=== PATIENT | male | born 1955 | race Caucasian/White ===

== ENCOUNTER 2017-06-20 08:38 | Emergency (ER) | payer SELFPAY ==
[2017-06-20 08:43] VITALS: BP 140/84; PULSE 90; RESP 20; TEMP 97.3; O2SAT 97
--- NOTE | 2017-06-20 08:45 | PD ---
HPI . right arm redness and wounds x 1 mt Chief Complaint: Skin Problem Time Seen by Provider: 08:45 Travel History International Travel<30 days: No Contact w/Intl Traveler<30days: No Traveled to known affect area: No History of Present Illness HPI 61 yr old male with history of psoriasis and is homeless here with complaints of right arm redness and wounds for over a month. Patient says he's been trying to take care of him, but they seem to be progressively getting worse. He denies any fever or chills. He has no other complaints. He is currently living in his car and does not have access to resources daily. PFSH Past Medical History Depression: Yes Musculoskeletal: Yes (R BICEP SURGERY) Past Surgical History Neurologic Surgery: No Other Surgery: Yes Social History Alcohol Use: Yes (12 PK WEEK) Tobacco Use: Yes (PK A DAY) Substance Use: No Allergies-Medications (Allergen,Severity, Reaction): Coded Allergies: No Known Allergies (Verified , 10/06/13) Reported Meds & Prescriptions Reported Meds & Active Scripts Active Bactrim DS (Sulfamethoxazole-Trimethoprim) 800-160 Mg Tab 1 Tab PO BID Review of Systems General / Constitutional: No: Fever Eyes: No: Visual changes HENT: No: Headaches Cardiovascular: No: Chest Pain or Discomfort Respiratory: No: Shortness of Breath Gastrointestinal: No: Abdominal Pain Genitourinary: No: Dysuria Musculoskeletal: No: Pain Skin: Positive Lesions, Positive Other (right arm skin wound), No Rash Neurologic: No: Weakness Psychiatric: No: Depression Endocrine: No: Polydipsia Hematologic/Lymphatic: No: Easy Bruising Physical Exam Narrative GENERAL: AAO x 3, no acute distress, Well-nourished, well-developed patient. SKIN: Warm and dry. No visible rashes or bruising. 7 cm skin wound that is healing on the elbow, mild surrounding erythema without purulence, left arm two small lesions that are erythematous, multiple scattered psoriatic appearing lesions dispersed over b/l UE HEAD: Normocephalic and atraumatic. EYES: No scleral icterus. No injection or drainage. EOM intact, PERRLA ENT: No nasal drainage noted. Mucous membranes pink. Airway patent. NECK: Supple, trachea midline. No JVD. CARDIOVASCULAR: Regular rate and rhythm without murmurs, gallops, or rubs. RESPIRATORY: Breath sounds equal bilaterally. No accessory muscle use. No rhonchi or rales. GASTROINTESTINAL: visual inspection normal EXTREMITIES: No cyanosis or edema. BACK: No obvious deformity. NEURO: CN II-12 intact, PSYCH: AAO x 3, normal affect. Data Data Last Documented VS Vital Signs Date Time Temp Pulse Resp B/P Pulse Ox O2 Delivery O2 Flow Rate FiO2 06/20/17 08:43 97.3 90 20 140/84 97 Room Air MDM Medical Decision Making Medical Screen Exam Complete: Yes Emergency Medical Condition: Yes Medical Record Reviewed: Yes Differential Diagnosis Superficial skin cellulitis, chronic wounds, psoriasis Narrative Course 61 year-old male here with superficial skin cellulitis. I have provided him with a prescription for Bactrim to cover MRSA. Recommend cleaning his body with soap and water daily. I encouraged him to look into community resources. Patient verbalized understanding of instructions, questions were answered, and thanked me for their care. I advised them if their condition worsens, please return to the nearest emergency room for further care. Diagnosis Primary Impression: Cellulitis of skin Additional Impressions: Psoriasis Homeless Referrals: [facility] Patient Instructions: General Instructions Additional Instructions: Try to keep your skin clean at least once daily. Wash with soap and water. Take antibiotics as prescribed. They are free at [facility] ([facility] Please return to emergency department if your symptoms return or worsen. Follow up with your primary care provider. Take medications as prescribed. Med/Other Pt SpecificInfo: Prescription(s) given Scripts Sulfamethoxazole-Trimethoprim (Bactrim DS)800-160 Mg Tab1 Tab PO BID #20 TAB Prov:Jane Lee DO 06/20/17 Disposition: 01 DISCHARGE HOME Condition: Stable Radha Olivo Jun 20, 2017 08:45
[2017-06-20] MEDS ORDERED: BACT800T5 PO (08:48)
== END 2017-06-20 09:01 | disposition home or self-care (01) ==
LOC: NEPK 08:38
DX: L03.90 Cellulitis, unspecified (principal); L40.9 Psoriasis, unspecified; Z59.0 Homelessness
CPT/HCPCS: 99283